=== PATIENT | female | born 1945 | race Caucasian/White ===

== ENCOUNTER → 2017-02-02 | Outpatient (CLI) | payer OTHER, MEDICARE | LOC: LAB 15:15 | DX: Z01.818 Encounter for other preprocedural examination (principal); N05.9 Unspecified nephritic syndrome with unspecified morphologic changes | CPT/HCPCS: 36415 ==

== ENCOUNTER → 2017-04-16 | Outpatient (CLI) | payer OTHER, MEDICARE | LOC: LAB 14:22 | DX: N12 Tubulo-interstitial nephritis, not specified as acute or chronic (principal) | CPT/HCPCS: 36415; 99001 ==

== ENCOUNTER → 2020-12-19 | Outpatient (CLI) | payer MEDICARE ==
[~2020-12-19] MED LIST: ASPIRIN CHEWABL81 MG PO; CITALOPRAM HBR20 MG PO; ENVARSUS XR PO; FAMOTIDINE20 MG PO; GABAPENTIN600 MG PO; K-PHOS ORIGINA500 MG PO; LOPRESSOR 50 MG50 MG PO; MAG DELAY64 M1 PO; MULTIPLE VITAM1 EACH PO; NIFEDIPINE ER30 M1 PO; NORCO 10-325 T1 EACH PO; PRAVASTATIN SOD80 MG PO; PREDNISONE5 MG PO; PROLIA INJ60 MG/1 ML SC; SODIUM BICARBO650 MG PO
[2020-12-19 13:42] LABS: RED BLOOD COUNT 4.54 M/UL (4.00-5.10); WHITE BLOOD COUNT 5.9 K/UL (4.5-11.0)
[2020-12-21 16:11] LABS: LOG10 BK QN PCR 2.633 (.)
== END ==
LOC: LAB 12:39
PROVIDERS: Internal Medicine Nephrology
DX: K85.90 Acute pancreatitis without necrosis or infection, unspecified (principal); G25.81 Restless legs syndrome; E78.5 Hyperlipidemia, unspecified; H91.90 Unspecified hearing loss, unspecified ear; F32.9 Major depressive disorder, single episode, unspecified; H26.9 Unspecified cataract; D56.1 Beta thalassemia; H34.9 Unspecified retinal vascular occlusion
CPT/HCPCS: 36415; 80069; 83735; 85025; 87799

== ENCOUNTER → 2021-02-13 | Outpatient (CLI) | payer MEDICARE | LOC: LAB 11:20 | DX: Z48.22 Encounter for aftercare following kidney transplant (principal) | CPT/HCPCS: 36415 ==

== ENCOUNTER → 2021-04-17 | Outpatient (CLI) | payer MEDICARE ==
[2021-04-17 16:23] LABS: HEMOGLOBIN 13.5 gm/dl (12.3-15.3); RED BLOOD COUNT 4.77 M/UL (4.00-5.10); WHITE BLOOD COUNT 6.3 K/UL (4.5-11.0)
[2021-04-17 16:40] LABS: BUN/CREATININE RATIO 17 (0-10)
[2021-04-19 16:11] LABS: LOG10 BK QN PCR 2.431 (.)
== END ==
LOC: LAB 14:14
PROVIDERS: Internal Medicine Nephrology
DX: Z48.22 Encounter for aftercare following kidney transplant (principal); Z94.0 Kidney transplant status; K85.90 Acute pancreatitis without necrosis or infection, unspecified; E78.5 Hyperlipidemia, unspecified; G25.81 Restless legs syndrome; H91.90 Unspecified hearing loss, unspecified ear; F32.9 Major depressive disorder, single episode, unspecified; D56.1 Beta thalassemia; H34.9 Unspecified retinal vascular occlusion
CPT/HCPCS: 36415; 80069; 83735; 85025; 87799

== ENCOUNTER → 2021-05-02 | Outpatient (CLI) | payer MEDICARE | LOC: LAB 12:17 | DX: Z48.22 Encounter for aftercare following kidney transplant (principal); K85.90 Acute pancreatitis without necrosis or infection, unspecified; G25.81 Restless legs syndrome; E78.5 Hyperlipidemia, unspecified; H91.90 Unspecified hearing loss, unspecified ear; F32.9 Major depressive disorder, single episode, unspecified; H26.9 Unspecified cataract; D56.1 Beta thalassemia; H34.9 Unspecified retinal vascular occlusion; Z98.1 Arthrodesis status; Z94.0 Kidney transplant status | CPT/HCPCS: 36415; 84443 ==

== ENCOUNTER → 2021-05-22 | Outpatient (CLI) | payer MEDICARE | LOC: KOH-I 05-20 14:30 | DX: G95.9 Disease of spinal cord, unspecified (principal); M50.21 Other cervical disc displacement, high cervical region | CPT/HCPCS: 72141 ==

== ENCOUNTER → 2021-06-11 | Outpatient (CLI) | payer MEDICARE | LOC: LAB 12:23 | DX: R82.81 Pyuria (principal) | CPT/HCPCS: 87077; 87086; 87186 ==

== ENCOUNTER → 2021-07-11 | Outpatient (CLI) | payer MEDICARE | LOC: MRI 09:06 | DX: M54.9 Dorsalgia, unspecified (principal); M51.86 Other intervertebral disc disorders, lumbar region; M48.061 Spinal stenosis, lumbar region without neurogenic claudication; M51.24 Other intervertebral disc displacement, thoracic region; R93.7 Abnormal findings on diagnostic imaging of other parts of musculoskeletal system; Z98.1 Arthrodesis status; Z94.0 Kidney transplant status | CPT/HCPCS: 72146; 72148 ==

== ENCOUNTER → 2021-09-26 | Outpatient (CLI) | payer MEDICARE | LOC: KOH-I 10:14 | DX: M51.24 Other intervertebral disc displacement, thoracic region (principal); M48.54XA Collapsed vertebra, not elsewhere classified, thoracic region, initial encounter for fracture | CPT/HCPCS: 72146 ==

== ENCOUNTER → 2022-05-07 | Outpatient (CLI) | payer MEDICARE ==
[~2022-05-07] VITALS: Ht 157.5 cm; Wt 58.1 kg
== END ==
LOC: OPSV 15:00
DX: D84.9 Immunodeficiency, unspecified (principal); M81.8 Other osteoporosis without current pathological fracture; E83.9 Disorder of mineral metabolism, unspecified; M89.9 Disorder of bone, unspecified; Z94.0 Kidney transplant status
CPT/HCPCS: 96372